=== PATIENT | male | born 1995 | race Caucasian/White ===

== ENCOUNTER 2019-03-30 11:29 | Emergency (ER) | payer OTHER ==
[~2019-03-30] VITALS: Ht 177.8 cm; Wt 90.7 kg
--- OUTSIDE RECORDS SUMMARY | 2019-03-30 11:34 | XMS REPORT | Referral Summary ---
Author Author [facility] Organization [facility] Address Unknown Phone Unavailable Care Team Providers Care Customs Compliance Director Name Role Phone No PCP, Pt States PCP Encounter VC Date(s): 04/09/18 - 04/09/18 [facility] [address] [place] [address] [phone] Discharge Disposition: Attending Physician: Aiden Mcpherson MD Admitting Physician: Aiden Mcpherson MD Vital Signs Most recent to 1 oldest [Reference Range]: Temperature Oral 36.6 degC [35.8-37.3 degC] (04/09/18 12:54 AM) Peripheral Pulse 78 bpm Rate [60-100 bpm] (04/09/18 12:54 AM) Respiratory Rate 16 br/min [14-20 br/min] (04/09/18 12:54 AM) Blood Pressure 116/70 mmHg [90-140/60-90 mmHg] (04/09/18 12:54 AM) SpO2 97 % (04/09/18 12:54 AM) Problem List Condition Effective Dates Status Health Status Informant Varicella(Confirmed) 10/02/97 Active Allergies, Adverse Reactions, Alerts No Known Medication Allergies Medications No data available for this section Results No data available for this section Immunizations Given and Recorded Vaccine Date Status Refusal Reason tetanus/diphth/pertuss (Tdap) adult/adol 05/11/09 Recorded meningococcal conjugate vaccine 05/11/09 Recorded tetanus-diphth toxoids (Td) adult/adol 06/15/05 Given measles/mumps/rubella virus vaccine 04/30/99 Recorded measles/mumps/rubella virus vaccine 09/09/94 Recorded poliovirus vaccine, live, trivalent 04/30/99 Recorded poliovirus vaccine, live, trivalent 09/09/94 Recorded poliovirus vaccine, live, trivalent 01/05/94 Recorded poliovirus vaccine, live, trivalent 93 Recorded poliovirus vaccine, live, trivalent 93 Recorded diphtheria/pertussis, acel/tetanus ped 04/30/99 Recorded diphtheria/pertussis, acel/tetanus ped 09/09/94 Recorded diphtheria/pertussis, acel/tetanus ped 01/05/94 Recorded diphtheria/pertussis, acel/tetanus ped 93 Recorded diphtheria/pertussis, acel/tetanus ped 93 Recorded haemophilus b conjugate (HbOC) vaccine 09/09/94 Recorded haemophilus b conjugate (HbOC) vaccine 01/05/94 Recorded haemophilus b conjugate (HbOC) vaccine 93 Recorded haemophilus b conjugate (HbOC) vaccine 93 Recorded hepatitis B pediatric vaccine 01/05/94 Recorded hepatitis B pediatric vaccine 93 Recorded hepatitis B pediatric vaccine 93 Recorded Procedures No data available for this section Social History Social History Type Response Smoking Status Current every day smoker entered on: 01/25/16 Assessment and Plan No data available for this section
--- OUTSIDE RECORDS SUMMARY | 2019-03-30 11:34 | XMS REPORT | Referral Summary ---
Author Author [facility] Organization [facility] Address Unknown Phone Unavailable Care Team Providers Care Plywood Layup Line Core Feeder Name Role Phone Nima Domingo PCP Encounter [facility] [id number] Date(s): 01/25/16 - 01/25/16 [facility] [address] [place], [place] [address] Discharge Diagnosis: Closed fracture of fifth metacarpal bone Discharge Disposition: 01-Home or Self Care Attending Physician: Rolando Jones MD Admitting Physician: Rolando Jones MD Vital Signs Most recent to 1 oldest [Reference Range]: Temperature Oral 37.2 degC [35.8-37.3 degC] (01/25/16 7:54 PM) Peripheral Pulse 77 bpm Rate [60-100 bpm] (01/25/16 9:03 PM) Respiratory Rate 18 br/min [14-20 br/min] (01/25/16 9:03 PM) Blood Pressure 133/83 mmHg [90-140/60-90 mmHg] (01/25/16 9:03 PM) SpO2 99 % (01/25/16 9:03 PM) Problem List Condition Effective Dates Status Health Status Informant Varicella(Confirmed) 10/02/97 Active Allergies, Adverse Reactions, Alerts No Known Medication Allergies Medications ibuprofen 0 Refill(s) Start Date: 01/25/16 Status: Ordered [place] 5 mg-325 mg oral tablet 1 tabs, Oral, q6hr, as needed for pain, # 24 tabs, 0 Refill(s) Start Date: 01/25/16 Stop Date: 01/24/17 Status: Ordered Results No data available for this section Immunizations Vaccine Date Refusal Reason tetanus/diphth/pertuss (Tdap) adult/adol 05/11/09 diphtheria/pertussis, acel/tetanus ped 04/30/99 diphtheria/pertussis, acel/tetanus ped 09/09/94 diphtheria/pertussis, acel/tetanus ped 01/05/94 diphtheria/pertussis, acel/tetanus ped 93 diphtheria/pertussis, acel/tetanus ped 93 haemophilus b conjugate (HbOC) vaccine 09/09/94 haemophilus b conjugate (HbOC) vaccine 01/05/94 haemophilus b conjugate (HbOC) vaccine 93 haemophilus b conjugate (HbOC) vaccine 93 hepatitis B pediatric vaccine 01/05/94 hepatitis B pediatric vaccine 93 hepatitis B pediatric vaccine 93 measles/mumps/rubella virus vaccine 04/30/99 measles/mumps/rubella virus vaccine 09/09/94 meningococcal conjugate vaccine 05/11/09 poliovirus vaccine, live, trivalent 04/30/99 poliovirus vaccine, live, trivalent 09/09/94 poliovirus vaccine, live, trivalent 01/05/94 poliovirus vaccine, live, trivalent 93 poliovirus vaccine, live, trivalent 93 tetanus-diphth toxoids (Td) adult/adol 06/15/05 Procedures No data available for this section Social History Social History Type Response Smoking Status Current every day smoker Assessment and Plan No data available for this section
--- OUTSIDE RECORDS SUMMARY | 2019-03-30 11:34 | XMS REPORT ---
Author Author Simone Roman Organization [employer] Address Unknown Phone Unavailable Care Team Providers Care Hearing Aid Repairer Name Role Phone Simone Roman CP Unavailable Allergies No Known Allergies Problems Problem Type Condition ICD-9 Code Onset Dates Condition Status Problem Gastro - esophageal reflux disease 530.81 Active Medications No Known Medications Results No Known Results Summary Purpose [employer] Submission
--- OUTSIDE RECORDS SUMMARY | 2019-03-30 11:34 | XMS REPORT ---
Author Author Simone Roman [facility] [employer] Address Unknown Phone Unavailable Care Team Providers Care Md Physician Dermatologist Name Role Phone Simone Roman CP Unavailable Allergies, Adverse Reactions, Alerts Substance Reaction Event Type N.K.D.A. Info Not Available Non Drug Allergy Problems Problem Type Condition ICD-9 Code Onset Dates Condition Status Assessment Gastro - esophageal reflux disease 530.81 Active Problem Gastro - esophageal reflux disease 530.81 Active Medications Medication Code System Code Instructions Start Date End Date Status Dosage Citalopram Hydrobromide [facility] [address]-12 20 MG Orally Once a day May 15, 2014 Active 1 tablet Omeprazole [facility] [address]-94 40 MG Orally Once a day Oct 13, 2014 Active 1 capsule Procedures Procedure Coding System Code Date OFFICE VISITEST PT CPT-4 46720 Oct 13, 2014 Vital Signs Date/Time: Oct 13, 2014 Blood Pressure Systolic 106 mm Hg Height 72 in Weight 174.2 lbs BMI 23.62 Index Blood Pressure Diastolic 62 mm Hg Results No Known Results Summary Purpose [employer] Submission
--- OUTSIDE RECORDS SUMMARY | 2019-03-30 11:34 | XMS REPORT ---
Author Author Mehdi Shore Organization [employer] Address Unknown Phone Unavailable Care Team Providers Care Focusing Machine Operator Name Role Phone Mehdi Shore CP Unavailable Allergies No Known Allergies Problems Problem Type Condition Code Onset Dates Condition Status Assessment STD exposure Z20.2 Active Problem Esophageal reflux K21.9 Active Medications No Known Medications Results No Known Results Summary Purpose [employer] Submission
--- OUTSIDE RECORDS SUMMARY | 2019-03-30 11:34 | XMS REPORT | Referral Summary ---
Author Author [facility] Organization [facility] Address Unknown Phone Unavailable Care Team Providers Care Power Shovel Mechanic Name Role Phone No PCP, Pt States PCP Encounter VC Date(s): 05/02/17 - 05/03/17 [facility] [address] [place] [address] Discharge Disposition: El Attending Physician: Hector Voss MD Admitting Physician: Hector Voss MD Vital Signs Most recent to 1 oldest [Reference Range]: Temperature Tympanic 36.4 degC [36.6-38.1 degC] *LOW* (05/02/17 10:50 PM) Peripheral Pulse 93 bpm Rate [60-100 bpm] (05/02/17 10:50 PM) Respiratory Rate 18 br/min [14-20 br/min] (05/02/17 10:50 PM) Blood Pressure 136/78 mmHg [90-140/60-90 mmHg] (05/02/17 10:50 PM) SpO2 98 % (05/02/17 10:50 PM) Problem List Condition Effective Dates Status [...]
--- OUTSIDE RECORDS SUMMARY | 2019-03-30 11:35 | XMS REPORT ---
Author Author Mehdi Shore Organization [employer] Address Unknown Phone Unavailable Care Team Providers Care Millinery Salesperson Name Role Phone Mehdi Shore CP Unavailable Allergies No Known Allergies Problems Problem Type Condition Code Onset Dates Condition Status Problem Esophageal reflux K21.9 Active Medications No Known Medications Results No Known Results Summary Purpose [employer] Submission
--- OUTSIDE RECORDS SUMMARY | 2019-03-30 11:35 | XMS REPORT ---
Author Author Simone Roman [facility] [employer] Address Unknown Phone Unavailable Care Team Providers Care Rebar Bender Name Role Phone Simone Roman CP Unavailable Allergies, Adverse Reactions, Alerts Substance Reaction Event Type N.K.D.A. Info Not Available Non Drug Allergy Problems Problem Type Condition Code Onset Dates Condition Status Assessment Insect bite T14.8 Active Problem Esophageal reflux K21.9 Active Medications Medication Code System Code Instructions Start Date End Date Status Dosage Cefadroxil [facility] [address]-46 500 MG Orally every 12 hrs Aug 24, 2016 1 capsules Procedures Procedure Coding System Code Date OFFICE VISITEST PT CPT-4 73132 Aug 24, 2016 Vital Signs Date/Time: Aug 24, 2016 Blood Pressure Systolic 110 mm Hg Height 72 in Weight 194.2 lbs BMI 26.34 Index Blood Pressure Diastolic 78 mm Hg Results No Known Results Summary Purpose [employer] Submission
--- OUTSIDE RECORDS SUMMARY | 2019-03-30 11:35 | XMS REPORT ---
Author Author Simone Roman Organization [employer] Address Unknown Phone Unavailable Care Team Providers Care Layout Designer Name Role Phone Simone Roman CP Unavailable Allergies No Known Allergies Problems Problem Type Condition Code Onset Dates Condition Status Problem Esophageal reflux K21.9 Active Medications No Known Medications Results No Known Results Summary Purpose [employer] Submission
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
--- OUTSIDE RECORDS SUMMARY | 2019-03-30 11:35 | XMS REPORT | Continuity of Care Document ---
Author Author Lorenzo LEONG, Ced Organization Ambulatory Address [address] [place] [address] Phone Care Team Providers Care Records Administrator Name Role Phone No PCP Reported, . PP Unavailable Payers Payer name Insurance type Covered constitution party ID Authorization(s) Unknown Problems Condition Effective Dates (start - stop) Clinical Status Food poisoning, unspecified - *Resolved Nausea And Vomiting - *Resolved Unspecified site of ankle sprain - *Acute Axillary adenitis - *Acute Noninfectious Gastroenteritis - *Acute Family History Family Member Diagnosis Age At Onset Status Unknown Social History Social History Element Description Quantity Unknown Allergies, Adverse Reactions, Alerts Substance Reaction Severity Status Unknown Medications Medication Instructions Dosage Effective Dates (start - stop) Status Unknown Immunizations Vaccine Date Status Comments Unknown Results Test Name Date and Time Measure Units Reference Range Abnormal Flag Comments Unknown Vital Signs Date / Time: Height Weight Pulse Rate Blood Pressure Temperature /16:50:00 69.75 in 182.00 lbs 71 /min 140/67 mm[Hg] 98.5 F Procedures Procedure Date Unknown Encounters Encounter Location Date Patient Visit [facility] Imm Care Patient Visit [facility] Imm Care Patient Visit [facility] Peds Advance Directives Directive Effective Date Unknown
--- NOTE | 2019-03-30 12:17 | ED EENT ---
History of Present Illness General Chief Complaint: Dental Problems/Pain Stated Complaint: DENTAL PAIN/FACIAL SWELLING Nursing Triage Note: c/o R upper dental pain and swelling. patient reports has had intermittent issues with area for a 2 months. but states the swelling started this morning Source: patient Exam Limitations: no limitations History of Present Illness Date Seen by Provider: Mar 30, 2019 Time Seen by Provider: 12:17 Initial Comments 23 yo male patient presents to the ED with c/o rt upper dental pain and facial swelling. 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 Facial swelling started this AM. Timing/Duration: gradual Location: facial, dental Prearrival Treatment: over the counter meds (last dose of naproxen yesterday) Modifying Factors: Worse With Other (worse with chewing and palpation) Associated Symptoms: No drooling, No ear drainage; facial pain/swelling; No fever, No malaise, No nasal congestion/drainage, No sinus infection, No sore throat; tooth pain; No voice change Allergies and Home Medications Allergies Coded Allergies: No Known Drug Allergies (Unverified , 03/30/19) Home Medications Cefdinir 300 Mg Capsule, 300 MG PO BID Prescribed by: JESU PRYOR on 03/30/19 1240 Hydrocodone Bit/Acetaminophen 1 Tab Tab, 1 EACH PO Q4-6HR PRN for PAIN-MODERATE Prescribed by: JESU PRYOR on 03/30/19 1240 Ibuprofen 800 Mg Tablet, 800 MG PO Q8H PRN for PAIN Prescribed by: JESU PRYOR on 03/30/19 1240 Patient Home Medication List Home Medication List Reviewed: Yes Review of Systems Review of Systems Constitutional: No chills, No dizziness, No fever, No malaise Eyes: No Symptoms Reported Ears: No Symptoms Reported Nose: no symptoms reported Mouth: see HPI, pain (right upper dental pain), swelling (right facial swelling) Throat: denies pain, denies swelling, denies neck stiffness, denies hoarse, denies aphonia, denies muffled, denies painful swallowing, denies difficulty with fluids Respiratory: no symptoms reported Cardiovascular: no symptoms reported Gastrointestinal: no symptoms reported Skin: no symptoms reported Neurological: Denies Headache All Other Systems Reviewed Negative Unless Noted: Yes (Negative excepted noted.) Past Aawjorn-Rlbwqo-Vqnmpn Hx Past Med/Social Hx: Reviewed Nursing Past Med/Soc Hx Patient Social History Alcohol Use: Occasionally Uses Recreational Drug Use: No Smoking Status: Current Everyday Smoker Type Used: Cigarettes (1.5 ppd) 2nd Hand Smoke Exposure: Yes Recent Foreign Travel: No Contact w/Someone Who Travel: No Recent Infectious Disease Expo: No Recent Hopitalizations: No Physical Abuse: No Sexual Abuse: No Mistreated: No Past Medical History Surgeries: No Respiratory: No Cardiac: No Neurological: No Genitourinary: No Gastrointestinal: No Musculoskeletal: No Endocrine: No HEENT: No Cancer: No Psychosocial: No Integumentary: No Blood Disorders: No Family Medical History Reviewed Nursing Family Hx No Pertinent Family Hx Physical Exam Vital Signs Vital Signs - First Documented 03/30/19 11:39 Temp 98.1 Pulse 66 Resp 18 B/P (MAP) 124/75 (91) Pulse Ox 96 Height, Weight, BMI Height: 5'10.00" Weight: 200lbs. oz. 90.520968db; BMI Method:Stated General Appearance: WD/WN, no apparent distress Eyes: bilateral eye normal inspection, bilateral eye PERRL, bilateral eye EOMI Ears: bilateral ear auricle normal, bilateral ear canal normal, bilateral ear TM normal Nose: normal inspection Mouth/Throat: pharynx normal, dental tenderness (right upper); No excessive drooling; maxillary swelling (right); No trismus, No uvula swelling, No voice changes Neck: full range of motion, supple, lymphadenopathy (R) (TTP); No lymphad enopathy (L) Cardiovascular: normal peripheral pulses, regular rate, rhythm, no gallop, no murmur Respiratory: lungs clear, normal breath sounds, no respiratory distress, no accessory muscle use Neurologic/Psychiatric: alert, normal mood/affect, oriented x 3 Skin: normal color, warm/dry; No other (no facial erythema) Progress/Results/Core Measures Results/Orders My Orders Orders - JESU PRYOR Ceftriaxone For Im Use (Rocephin For Im (03/30/19 12:30) Hydrocodone/Apap 5/325 Tablet (Lortab 5 (03/30/19 12:30) Ketorolac Injection (Toradol Injection) (03/30/19 12:26) Lidocaine 1% Inj 20 Ml (Xylocaine 1% Inj (03/30/19 12:30) Benzocaine Extension Tube (Hurricaine Ex (03/30/19 12:30) Lidocaine 2% Viscous 15 Ml (Xylocaine Vi (03/30/19 12:30) Medications Given in ED Current Medications Medications Dose Ordered Sig/Marianne Route Start Time Stop Time Status Last Admin Dose Admin Acetaminophen/ Hydrocodone Bitart 1 tab ONCE ONCE PO 03/30/19 12:30 03/30/19 12:31 DC 03/30/19 12:50 1 TAB Benzocaine 1 ea ONCE ONCE XX 03/30/19 12:30 03/30/19 12:31 DC 03/30/19 12:50 1 EA Ceftriaxone Sodium 1,000 mg ONCE ONCE IM 03/30/19 12:30 03/30/19 12:31 DC 03/30/19 12:49 1,000 MG Lidocaine HCl 2.1 ml ONCE ONCE INJ 03/30/19 12:30 03/30/19 12:31 DC 03/30/19 12:49 2.1 ML Lidocaine HCl 5 ml ONCE ONCE PO 03/30/19 12:30 03/30/19 12:31 DC 03/30/19 12:50 5 ML Vital Signs/I&O 03/30/19 11:39 Temp 98.1 Pulse 66 Resp 18 B/P (MAP) 124/75 (91) Pulse Ox 96 Blood Pressure Mean: 91 Departure Communication (Admissions) Patient seen and evaluated. Patient given toradol 60 mg IM, rocephin 1 g IM, and lortab 5 mg po x 1 dose. plan for dsch to home with f/u as an outpatient with the dentist of his choice. Impression Primary Impression: Dental abscess Additional Impression: Dental caries Disposition: HOME, SELF-CARE Condition: Improved Departure-Patient Inst. Decision time for Depature: 12:36 Referrals: NO,LOCAL PHYSICIAN (PCP/Family) Primary Care Physician Patient Instructions: Dental Pain (DC), Tooth Abscess (DC) Add. Discharge Instructions: All discharge instructions reviewed with patient and/or family. Voiced understanding. Medications as directed. Ibuprofen 800 mg by mouth every 8 hours as needed for pain. Use ice packs or warm compresses as needed for pain. Drink plenty of fluids. Follow-up with the dentist of your choice for dental repair. Call their office Monday morning for an appointment time. Return to the emergency department for worsened symptoms, fever, facial swelling, difficulty swallowing, or any other concerns. Scripts Hydrocodone Bit/Acetaminophen (Hydrocodone/Acetaminophen 5/325mg Tablet) 1 Tab Tab 1 EACH PO Q4-6HR PRN for PAIN-MODERATE MDD 10 for 3 Days, #14 TAB 0 Refills Prov: JESU PRYOR 03/30/19 Ibuprofen (Ibuprofen) 800 Mg Tablet 800 MG PO Q8H PRN for PAIN, #30 TAB 0 Refills Prov: JESU PRYOR 03/30/19 Cefdinir (Cefdinir) 300 Mg Capsule 300 MG PO BID, #20 CAP 0 Refills Prov: JESU PRYOR 03/30/19 Work/School Note: Local Medical Staff Listing JESU PRYOR Mar 30, 2019 12:17
[2019-03-30] MEDS ORDERED: KETOROLAC 60 MG/2 ML VIAL IM STA (12:26)
[2019-03-30] MEDS ORDERED: HYDROcodone/APAP 5 MG/325 MG (LORTAB) TAB PO ONE (12:30)
[2019-03-30] MEDS ORDERED: HURRICAINE EXT TUBE (BENZOCAINE) XX ONE (12:30)
[2019-03-30] MEDS ORDERED: LIDOCAINE 1% INJ 20 ML 20 ML VIAL INJ ONE (12:30)
[2019-03-30] MEDS ORDERED: cefTRIAXone 1,000 MG/2.86 ml vial (IM ONLY) IM ONE (12:30)
[2019-03-30] MEDS ORDERED: LIDOCAINE 2% VISCOUS 15 ML UDC PO ONE (12:30)
[2019-03-30] MEDS ORDERED: CEFD300C3 PO (12:40)
[2019-03-30] MEDS ORDERED: ACHD5005 PO (12:40)
[2019-03-30] MEDS ORDERED: IBUP-1780 PO (12:40)
[2019-03-30 13:09] VITALS: BP 124/75
== END 2019-03-30 13:08 | disposition home or self-care (01) ==
LOC: ER 11:31
DX: K04.7 Periapical abscess without sinus (principal); K02.9 Dental caries, unspecified; F17.210 Nicotine dependence, cigarettes, uncomplicated
CPT/HCPCS: 99284